=== PATIENT | male | born 1940 ===

== ENCOUNTER 2022-08-04 06:00 | Outpatient (RCR) | payer MEDICARE, SELFPAY | END 2022-08-16 23:59 | disposition home or self-care (01) | LOC: TPT 06:00 | PROVIDERS: Visit Provider Family Medicine | DX: M72.2 Plantar fascial fibromatosis (principal) | CPT/HCPCS: 97110; 97162 ==

== ENCOUNTER 2022-08-17 06:00 | Outpatient (RCR) | payer MEDICARE, SELFPAY | END 2022-09-16 23:59 | disposition home or self-care (01) | LOC: TPT 06:00 | PROVIDERS: Visit Provider Family Medicine | DX: M72.2 Plantar fascial fibromatosis (principal) | CPT/HCPCS: 97110 ==